=== PATIENT | male | born 2000 | race Hispanic/Latino ===

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

== ENCOUNTER 2019-06-10 12:28 | Emergency (ER) | payer SELFPAY | END 2019-06-10 13:43 | disposition home or self-care (01) | LOC: ERS 12:28 | DX: H10.9 Unspecified conjunctivitis (principal); F17.210 Nicotine dependence, cigarettes, uncomplicated | CPT/HCPCS: 99283 ==

== ENCOUNTER 2022-10-21 14:34 | Emergency (ER) | payer SELFPAY | END 2022-10-21 15:25 | disposition home or self-care (01) | LOC: ERS 14:34 | DX: R21 Rash and other nonspecific skin eruption (principal) | CPT/HCPCS: 99282 ==